=== PATIENT | male | born 1975 | race Caucasian/White ===

== ENCOUNTER → 2017-12-14 14:37 | Outpatient (CLI) | payer BC, SELFPAY ==
--- NOTE | 2017-12-14 14:41 | US_ITS ---
STUDY: THYROID ULTRASOUND REASON FOR EXAM: Male, 42 years old. History of painful lump left side history of thyroid nodules TECHNIQUE: Ultrasound evaluation of the thyroid was performed with real-time and static deal-scale imaging. COMPARISON: Prior comparison studies are not available for review at this time. FINDINGS: RIGHT LOBE: The right lobe of the thyroid gland measures 4.0 x 1.6 x 1.5 cm. There is a homogeneous echotexture. There are no demonstrated solid, cystic or complex lesions. LEFT LOBE: The left lobe of the thyroid gland measures 4.7 x 1.8 x 1.9 cm. There is a homogeneous echotexture. There are no demonstrated solid, cystic or complex lesions. ISTHMUS: The isthmus measures 5 . In the region of interest there is a 1.2 x 0.5 x 0.8 cm thick-walled lymph node. There is additional visualization of a 1.2 x 0.6 x 0.6 cm mildly thick-walled lymph node. US/Thyroid IMPRESSION: Homogeneous within normal limits size thyroid for patient's gender. No evidence of dominant mass. On the left side in the region of interest, in the region of interest there are small but reactive appearing lymph nodes with thickened cortices. This may be related to other infection or process. Recommend correlation with any superficial or known infection. Recommend consideration for follow-up CT scan of the neck with IV contrast for further evaluation. Electronically Signed: Cinthya Porras MD at 8:53 EDT Tel , Service support ,
== END ==
PROVIDERS: Family Provider Family Medicine; PCP Family Medicine; Referring Provider Family Medicine; Visit Provider Family Medicine
DX: E04.1 Nontoxic single thyroid nodule (principal); R22.1 Localized swelling, mass and lump, neck
CPT/HCPCS: 76536

== ENCOUNTER → 2018-07-04 10:07 | Outpatient (CLI) | payer BC, SELFPAY ==
[2018-07-04 12:29] LABS: Absolute Neutrophil Count 2.3 X10^3/uL (2.0-7.7); Basophil# 0.02 X10^3/uL; Basophil% 0.5 % (0-1); Eosinophil# 0.11 X10^3/uL; Eosinophils% 2.6 % (0-5); Hematocrit 45.2 % (40-54); Hemoglobin 15.3 g/dl (13.0-16.5); Mean Corp Hgb Conc 33.8 g/gl (32-36); Mean Corpuscular Volume 85.6 fL (80-94); Mean Platelet Vol. 9.9 fl (6.2-12.0); Monocyte# 0.35 X10^3/uL; Monocyte% 8.2 % (0-10); Neutrophil % 53.5 % (47-70); Platelet Count 185 K/mm3 (150-450); RBC Distribution Width CV 13.5 % (11.6-14.6); RBC Distribution Width SD 41.7 fl (35.1-43.9); Red Blood Count 5.28 M/mm3 (4.6-6.2); White Blood Count 4.3 K/mm3 (4.4-11.0)
[2018-07-04 12:47] LABS: Anion Gap 6 (5-15); BUN 10 mg/dL (7-18); BUN/Creat Ratio 12.4 RATIO (10-20); Calcium,Total 8.5 mg/dL (8.5-10.1); Chloride 109 mmol/L (98-107); Creatinine, Serum 0.81 mg/dL (0.70-1.30); EST Glomerular Filtration Rate 110 mL/min (>60); Est Glom Filt Rate - Afr Amer 133 mL/min (>60); Glucose 94 mg/dL (74-106); Potassium 4.2 mmol/L (3.5-5.1); Sodium Level 139 mmol/L (136-145); Thyroid Stim Hormone (TSH) 0.91 uIU/mL (0.358-3.74)
[2018-07-04 12:58] LABS: POSITIVE COUNT NO; POSITIVE DIFFERENTIAL NO; POSITIVE MORPHOLOGY NO
[2018-07-04 14:25] LABS: Vitamin D,25 Hydroxy 14.3 ng/mL (29.95-100.01)
== END ==
PROVIDERS: Family Provider Family Medicine; PCP Family Medicine; Visit Provider Family Medicine
DX: R53.83 Other fatigue (principal); R73.01 Impaired fasting glucose; G89.4 Chronic pain syndrome; M79.7 Fibromyalgia
CPT/HCPCS: 36415; 80048; 82306; 83036; 84443; 85025

== ENCOUNTER → 2018-08-14 12:10 | Outpatient (CLI) | payer BC, SELFPAY ==
[2018-07-17 08:48] VITALS: BMI 38.6
[2018-08-14 12:19] LABS: Bacteria 0 SEEN /hpf (None Seen); Mucous, Urine 0 SEEN /hpf (<or=2+); Red Blood Cells-Urine 0 SEEN /hpf (0-5); Squamous Epithelial Cells - UA 0 SEEN /hpf (0-5); White Blood Cells 0 SEEN /hpf (0-5)
[2018-08-14 13:16] LABS: Color, Urine Yellow (Yellow); Glucose, Dipstick Normal (Normal); Ketone-Dipstick Negative (Negative); Leukocyte Esterase-Dipstick Negative /ul (Negative); Nitrite-Dipstick Negative (Negative); Occult Blood-Urine Negative /ul (Negative); Protein-Dipstick Negative (Negative); Specific Gravity, Urine 1.015 (1.002-1.030); Urine Bilirubin Dipstick Negative (Negative); Urine Clarity Clear (Clear); Urine Urobilinogen Normal (Normal)
[2018-08-14 13:20] LABS: PSA,Total - Annual Screen 0.46 ng/mL (0.00-4.00)
== END ==
PROVIDERS: Family Provider Family Medicine; PCP Family Medicine; Referring Provider Nurse Practitioner Adult Health; Visit Provider Nurse Practitioner Adult Health
DX: Z12.5 Encounter for screening for malignant neoplasm of prostate (principal); R30.0 Dysuria
CPT/HCPCS: 81001; 84153; 87086; G0103

== ENCOUNTER → 2018-09-20 08:12 | Outpatient (CLI) | payer BC, SELFPAY ==
[2018-07-17 08:48] VITALS: BMI 38.6
[2018-09-20 12:10] LABS: International Normalized Ratio 1.9; Prothrombin Time (Protime)PT. 21.5 SECONDS (11.7-14.9)
[2018-09-20 12:14] LABS: AST(SGOT) 93 U/L (15-37); Alanine Aminotransfer ALT/SGPT 216 U/L (16-61); Albumin, Serum 3.6 g/dL (3.2-5.0); Alkaline Phosphatase 76 U/L (45-117); Bilirubin, Direct 0.08 mg/dL (0.00-0.30); Cholesterol 174 mg/dL (200); Globulin 2.8 g/dL (2.2-4.2); High Density Lipoprotein 28 mg/dL; Protein, Total 6.4 g/dL (6.4-8.2); Triglycerides 328 mg/dL; Very Low Density Lipoprotein 66 mg/dL (5-40)
[2018-09-20 12:20] LABS: Vitamin D,25 Hydroxy 36.8 ng/mL (29.95-100.01)
== END ==
PROVIDERS: Family Provider Family Medicine; PCP Family Medicine; Visit Provider Internal Medicine Cardiovascular Disease
DX: Z13.220 Encounter for screening for lipoid disorders (principal); E55.9 Vitamin D deficiency, unspecified
CPT/HCPCS: 36415; 80061; 80076; 82306; 85610

== ENCOUNTER 2021-07-23 13:49 | Emergency (ER) | payer BC, SELFPAY ==
[2021-07-23 13:50] VITALS: BP 156/85; PULSE 85; RESP 18; TEMP 36.4; O2SAT 98; BMI 39.3
--- NOTE | 2021-07-23 15:19 | ED.VIS.LOWEX ---
HPI History of Present Illness HPI Narrative: Patient presents with pain to his right lower leg that has been getting worse over the last 6 days. Patient describes the pain as burning but sharp at times. Patient states it waxes and wanes. Patient states it is worse with activity. Patient states it starts on the medial aspect of the right ankle and radiates up the medial aspect of his right lower leg. Patient states he also has some pain over the anterior aspect of the right knee that radiates up into his right medial thigh and groin area. Patient does have a history of factor V Leiden deficiency and is on Coumadin. Patient denies any fevers or chills. Patient denies any trauma or injury. Chief Complaint: Lower Extremity Injury Onset/Context/Timing Onset: Days (6) Timing: Waxes and wanes Quality of Pain: Sharp and Burning Location: Right lower leg Worsened by: Activity Relieved by: Nothing Associated Symptoms Associated Symptoms: Positive for Parasthesia; Negative for Weakness PFSH PFS Medical History Aortic valve insufficiency Chronic pain syndrome DVT (deep venous thrombosis) (~1999) Factor V Leiden mutation Left thyroid nodule Lymphedema of right lower extremity Obesity Somatization disorder Vitamin D deficiency Home Medications warfarin 6 mg tablet 6 mg PO DAILY tab 07/12/18 [History Last Taken Unknown] omeprazole 20 mg capsule,delayed release 20 mg PO DAILY PRN cap 07/17/18 [History Last Taken Unknown] lisinopril 10 mg PO DAILY 07/23/21 [History Last Taken Unknown] Allergy/AdvReac Type Severity Reaction Status Date / Time Penicillins [PCN] Allergy Severe Anaphylaxis: Verified 07/23/21 13:50 had as a child albuterol sulfate Allergy Unknown Hives Verified 07/23/21 13:50 [From Ventolin HFA] metaproterenol [From Alupent] AdvReac Severe Hives and Verified 07/23/21 13:50 itching sulfamethoxazole AdvReac Severe Uvula Verified 07/23/21 13:50 [From Bactrim] swelling trimethoprim [From Bactrim] AdvReac Severe Uvula Verified 07/23/21 13:50 swelling doxycycline AdvReac Unknown Unknown Verified 07/23/21 13:50 strawberries Allergy Severe Hives and Uncoded 07/23/21 13:50 itching: actual berries Family History Mother Diabetes Arthritis Father CAD (coronary artery disease) Kidney disease on dialysis Son Factor V Leiden Surgical History right foot and ankle surgery (06/2002) Status post ablation of incompetent vein using laser (02/06/14) Social History Smoking Status: Never smoker ROS ROS ED Constitutional Constitutional ED: Denies chills or fever(s) Eyes Eyes: Denies blurry vision or change in vision ENT ENT ED: Denies rhinorrhea or sore throat Cardiovascular Cardiovascular: Denies chest pain or palpitations Respiratory/Chest Respiratory/Chest: Denies cough or dyspnea Gastrointestinal Gastrointestinal: Denies nausea or vomiting Genitourinary Genitourinary ED: Denies dysuria or hematuria Musculoskeletal Musculoskeletal: Denies back pain or neck pain Integumentary Denies abscess or rash Neurologic Neurologic: Denies headache(s) or weakness Allergic/Immunologic Allergic/Immunologic ED: Denies mouth swelling or urticaria EXAM Physical Exam Const Vital Signs: 07/23/21 13:50 07/23/21 17:25 Temperature 97.6 F L 97.0 F L Temperature Source Temporal Temporal Pulse Rate 85 69 Respiratory Rate 18 14 Blood Pressure 156/85 H 141/81 H Blood Pressure Mean 108 101 Pulse Ox 98 98 Oxygen Delivery Method Room Air Room Air Positive well nourished, well developed and obese General Appearance ED: well developed and NAD Nutritional Appearance: obese HEENT Reports moist mucous membranes Neck full ROM Extremity Extremity Narrative: There is mild tenderness over the medial aspect of the right ankle and lower leg. There is no real erythema or warmth. There is no discharge or drainage. There is no calf tenderness. There is no pain with dorsiflexion of the right ankle. There is some mild tenderness over the anterior aspect of the right knee. This reproduced shooting pains into his right medial thigh. There is no erythema noted. There is no rash noted. There is good range of motion of the right knee and ankle. Pedal pulses are equal bilaterally. Sensation was intact to light touch in all digits. Capillary refill was less than 2 seconds in all digits Neuro oriented x3, CN's II-XII intact bilaterally, moves all extremities and no sensory deficits noted Sensorium / Orientation: alert Motor Exam: strength 5/5 throughout MDM MDM MDM Narrative Medical decision making narrative: Venous duplex of the right lower extremity was obtained. There is no evidence of DVT. CBC and basic metabolic profile were obtained and were within normal limits. PT was 21.3 seconds and INR was 1.9. Patient was advised of his findings. Patient was instructed to continue his medications as previously prescribed. Patient was instructed to follow-up with his primary care physician and vascular surgeon as scheduled. Patient understood and was agreeable with the plan. All questions were answered. Lab Data Attestation: I reviewed the patient's lab results. Labs: Laboratory Results - last 24 hr 07/23/21 07/23/21 07/23/21 15:46 15:46 15:46 WBC Cancelled Corrected WBC Cancelled RBC Cancelled Hgb Cancelled Hct Cancelled MCV Cancelled MCH Cancelled MCHC Cancelled RDW Std Deviation Cancelled RDW Coeff of Nikko Cancelled Plt Count Cancelled MPV Cancelled Immature Gran % (Auto) Cancelled Neut % (Auto) Cancelled Lymph % (Auto) Cancelled [place] % (Auto) Cancelled Eos % (Auto) Cancelled Baso % (Auto) Cancelled Absolute Neuts (auto) Cancelled Absolute Lymphs (auto) Cancelled Total Counted Cancelled Neutrophils % (Manual) Cancelled Band Neutrophils % Cancelled Lymphocytes % (Manual) Cancelled Monocytes % (Manual) Cancelled Eosinophils % (Manual) Cancelled Basophils % (Manual) Cancelled Metamyelocytes % Cancelled Myelocytes % Cancelled Promyelocytes % Cancelled Blast Cells % Cancelled Plasma Cell % (Manual) Cancelled Other Cells % Cancelled Nucleated RBC % Cancelled Nucleated RBCs/100 WBC Cancelled Differential Comment Cancelled Diff Path Review Cancelled Hypersegmented Neuts Cancelled Atypical Lymphocytes Cancelled Reactive Lymphocytes Cancelled Smudge Cells Cancelled Toxic Granulation Cancelled Toxic Vacuolation Cancelled Dohle Bodies Cancelled Najma Rods Cancelled Platelet Estimate Cancelled Plt Morphology Comment Cancelled RBC Morphology Cancelled Polychromasia Cancelled Hypochromasia Cancelled Poikilocytosis Cancelled Basophilic Stippling Cancelled Anisocytosis Cancelled Microcytosis Cancelled Macrocytosis Cancelled Spherocytes Cancelled Sickle Cells Cancelled Target Cells Cancelled Tear Drop Cells Cancelled Ovalocytes Cancelled Stomatocytes Cancelled Max-[place] Bodies Cancelled Monika Cells Cancelled Bite Cells Cancelled Crenated Cell Cancelled Acanthocytes (Spur) Cancelled Rouleaux Cancelled Schistocytes Cancelled PT Cancelled INR Cancelled Sodium 137 Potassium 4.5 Chloride 108 H Carbon Dioxide 25.0 Anion Gap 4 L BUN 17 Creatinine 0.90 Estim Creat Clear Calc 110.17 Est GFR (MDRD) Af Amer 116 Est GFR (MDRD) Non-Af 96 BUN/Creatinine Ratio 18.9 Glucose 107 H Calcium 9.1 07/23/21 07/23/21 16:25 16:25 WBC 4.6 Corrected WBC RBC 5.01 Hgb 15.2 Hct 44.0 MCV 87.8 MCH 30.3 MCHC 34.5 RDW Std Deviation 42.0 RDW Coeff of Nikko 13.1 Plt Count 209 MPV 9.6 Immature Gran % (Auto) 0.200 Neut % (Auto) 53.8 Lymph % (Auto) 32.0 [place] % (Auto) 9.6 Eos % (Auto) 3.3 Baso % (Auto) 1.1 H Absolute Neuts (auto) 2.5 Absolute Lymphs (auto) 1.47 Total Counted Neutrophils % (Manual) Band Neutrophils % Lymphocytes % (Manual) Monocytes % (Manual) Eosinophils % (Manual) Basophils % (Manual) Metamyelocytes % Myelocytes % Promyelocytes % Blast Cells % Plasma Cell % (Manual) Other Cells % Nucleated RBC % 0 Nucleated RBCs/100 WBC Differential Comment Diff Path Review Hypersegmented Neuts Atypical Lymphocytes Reactive Lymphocytes Smudge Cells Toxic Granulation Toxic Vacuolation Dohle Bodies Najma Rods Platelet Estimate Plt Morphology Comment RBC Morphology Polychromasia Hypochromasia Poikilocytosis Basophilic Stippling Anisocytosis Microcytosis Macrocytosis Spherocytes Sickle Cells Target Cells Tear Drop Cells Ovalocytes Stomatocytes Max-[place] Bodies Monika Cells Bite Cells Crenated Cell Acanthocytes (Spur) Rouleaux Schistocytes PT 21.3 H INR 1.9 Sodium Potassium Chloride Carbon Dioxide Anion Gap BUN Creatinine Estim Creat Clear Calc Est GFR (MDRD) Af Amer Est GFR (MDRD) Non-Af BUN/Creatinine Ratio Glucose Calcium Discharge Plan Triage Chief Complaint: Lower Extremity Injury ED Provider: Иван Ricardo Dx/Rx/DC Orders Clinical Impression: Pain in right lower leg, Factor V Leiden mutation Instructions: ED Pain, Acute, Uncertain Cause Prescriptions: No Action warfarin 6 mg tablet 6 mg PO DAILY RF: 0 omeprazole 20 mg capsule,delayed release(DR/EC) 20 mg PO DAILY PRN (Reason: Acid Reflux) RF: 0 lisinopril 10 mg tablet 10 mg PO DAILY RF: 0 Primary Care Provider: David Gutierrez Referrals: David Gutierrez MD [Primary Care Provider] - 5-7 Days Tai Aggarwal MD [STAFF PHYSICIAN] - Keep [facility] appointment Disposition Disposition: Home, Self Care
--- NOTE | 2021-07-23 15:22 | VDLE_ITS ---
Reason For Study: LEG PAIN RIGHT LEFT CFV is compressible, spontaneous, phasic, CFV is compressible, spontaneous, phasic, competent and demonstrates normal competent, and demonstrates normal augmentation. augmentation. FV is compressible, spontaneous, phasic, competent and demonstrates normal augmentation. POP V is compressible, spontaneous, phasic, competent and demonstrates normal augmentation. T/P Trunk is compressible. PTV is compressible. RT PerV is compressible. Rt GSV previously ablated. Procedure This is a venous duplex using B-mode, color flow and spectral Doppler. Exam performed portable in ED. The exam was diagnostic. A preliminary report was called and/or faxed to ED. VL/Venous Duplex US, Unilateral Interpretation Summary Deep veins of the right lower extremity are patent and compressible segmentally . There is no evidence of right lower extremity deep vein thrombosis. Valvular competence amy ears intact within the proximal deep venous system on the right . The right great saphenous vein i s absent, having been previously ablated. Ordering Physician: Иван Ricardo Referring Physician: Wero Torres Performed By: Alex Martinez
[2021-07-23 16:16] LABS: Anion Gap 4 (5-15); BUN 17 mg/dL (7-18); BUN/Creat Ratio 18.9 RATIO (10-20); Calcium,Total 9.1 mg/dL (8.5-10.1); Chloride 108 mmol/L (98-107); EST Glomerular Filtration Rate 96 mL/min (>60); Est Glom Filt Rate - Afr Amer 116 mL/min (>60); Estimated Creatinine Clearance 110.17 ml/min; Glucose 107 mg/dL (74-106); Potassium 4.5 mmol/L (3.5-5.1); Sodium Level 137 mmol/L (136-145)
[2021-07-23 16:35] LABS: Absolute Lymphocyte Count 1.47 X10^3/uL (0.83-4.51); Absolute Neutrophil Count 2.5 X10^3/uL (2.0-7.7); Basophil# 0.05 X10^3/uL; Basophil% 1.1 % (0-1); Eosinophil# 0.15 X10^3/uL; Eosinophils% 3.3 % (0-5); Hemoglobin 15.2 g/dL (13.0-16.5); Lymphocyte # 1.47 X10^3/ul (0.83-4.51); Mean Corp Hgb Conc 34.5 g/dL (32-36); Mean Corpuscular Hgb 30.3 pg (27.0-32.0); Mean Corpuscular Volume 87.8 fL (80-94); Mean Platelet Vol. 9.6 fl (6.2-12.0); Monocyte# 0.44 X10^3/uL; Monocyte% 9.6 % (0-10); NRBC Flagged by Analyzer 0 % (0-5); Neutrophil # 2.47 X10^3/uL (2.7-7.7); Neutrophil % 53.8 % (47-70); Platelet Count 209 K/mm3 (150-450); RBC Distribution Width CV 13.1 % (11.6-14.6); Red Blood Count 5.01 M/mm3 (4.6-6.2); White Blood Count 4.6 K/mm3 (4.4-11.0)
[2021-07-23 16:39] LABS: International Normalized Ratio 1.9; Prothrombin Time (Protime)PT. 21.3 SECONDS (11.7-14.9)
[2021-07-23 17:25] VITALS: BP 141/81; PULSE 69; RESP 14; TEMP 36.1; O2SAT 98
== END 2021-07-23 17:55 | disposition home or self-care (01) ==
PROVIDERS: Emergency Provider Emergency Medicine; PCP Family Medicine; Visit Provider Emergency Medicine
DX: M79.661 Pain in right lower leg (principal); D68.51 Activated protein C resistance; E66.9 Obesity, unspecified; Z86.718 Personal history of other venous thrombosis and embolism
CPT/HCPCS: 80048; 85025; 85610; 93971; 99282; A4216